=== PATIENT | female | born 1990 | race Caucasian/White ===

== ENCOUNTER 2022-06-07 08:46 | Inpatient (IN) | payer BC ==
[2022-06-07] MEDS ORDERED: Ibuprofen 800 MG TAB PO PRN (09:06)
[2022-06-07] MEDS ORDERED: hydrALAZINE 20 MG/ML VIAL SLOW IVP PRN ×2 (09:06→16:53)
[2022-06-07] MEDS ORDERED: HYDROcodone/Acetaminophen 5/325 mg Tablet PO PRN ×4 (09:06→16:53)
[2022-06-07] MEDS ORDERED: Lidocaine 1% (PF) 30 ML VIAL SC PRN (09:06)
[2022-06-07] MEDS ORDERED: Ondansetron PF 4 MG/2 ML Vial IVP PRN ×3 (09:06→16:53)
[2022-06-07] MEDS ORDERED: Butorphanol Tartrate 1 MG/ML VIAL SLOW IVP PRN (09:06)
[2022-06-07] MEDS ORDERED: Promethazine HCl 25 MG/ML VIAL IM PRN ×2 (09:06→14:05)
[2022-06-07] MEDS ORDERED: Lactated Ringer's 1,000 ML IV SCH (09:15)
[2022-06-07] MEDS ORDERED: NS w/ Oxytocin 30 units 500 ML IV SCH ×3 (09:15→16:53)
[2022-06-07 09:50] VITALS: BMI 38.6
[2022-06-07 10:22] LABS: Hemoglobin 10.3 g/dL (12.0-15.5); Mean Corpuscular HGB CONC 33.2 g/dL (32.0-36.0); Mean Corpuscular Hemoglobin 28.8 pg (27.0-33.0); Mean Corpuscular Volume 86.6 fl (81.6-98.3); Mean Platelet Volume 10.1 fl (7.4-10.4); Platelet Count 239 10x3/uL (150-450); RBC Distribution Width 12.9 % (11.5-14.5); Red Blood Cell (RBC) Count 3.58 10x6/uL (3.90-5.03)
[2022-06-07 11:09] LABS: Hep B Surf Ag Non-Reactive S/CO (NonReactive); Syphilis Antibody Nonreactive (Nonreactive); Syphilis Antibody Index 0.02 S/CO (<1.00 Non-Reactive)
[2022-06-07 11:24] LABS: HBSAg Index 0.19 S/CO (0-0.99)
[2022-06-07] MEDS ORDERED: Fentanyl 2 mcg/Bup 0.1% Cadd 100 ML ONE (11:50)
[2022-06-07] MEDS ORDERED: Fentanyl 100 MCG/2 ML VIAL ONE (12:06)
[2022-06-07] MEDS ORDERED: Naloxone HCl 0.4 mg/ml Vial IVP PRN ×2 (14:05)
[2022-06-07] MEDS ORDERED: Moisturizing Cream (Eucerin) 113 GM JAR TOP PRN (14:05)
[2022-06-07] MEDS ORDERED: Lactated Ringer's 500 ML IV PRN (14:05)
[2022-06-07] MEDS ORDERED: Acetaminophen 325 MG TAB PO PRN (14:05)
[2022-06-07] MEDS ORDERED: diphenhydrAMINE 50 MG/ML VIAL IVP PRN (14:05)
[2022-06-07] MEDS ORDERED: ePHEDrine Sulfate 50 MG/10 ML VIAL SLOW IVP PRN (14:05)
[2022-06-07] MEDS ORDERED: Fentanyl 2 mcg/Bupivacaine 0.1% Cassette 100 ML EPIDURAL SCH (14:15)
[2022-06-07] MEDS ORDERED: Communication Order-Pharmacy FS SCH (14:15)
[2022-06-07] MEDS ORDERED: diphenhydrAMINE 25 MG CAP PO PRN (16:53)
[2022-06-07] MEDS ORDERED: Preparation H Ointment 28 GM TUBE PR PRN (16:53)
[2022-06-07] MEDS ORDERED: Lanolin Ointment 7 GM TUBE TOP PRN (16:53)
[2022-06-07] MEDS ORDERED: Boostrix 0.5 ML (Tdap) VIAL IM ONE (16:53)
[2022-06-07] MEDS ORDERED: Benzocaine-Menthol 82.5 ML CAN TOP PRN (16:53)
[2022-06-07] MEDS ORDERED: Milk Of Magnesia 30 ML UDCUP PO PRN (16:53)
[2022-06-07] MEDS ORDERED: Bisacodyl 10 MG SUPP PR PRN (16:53)
[2022-06-07] MEDS: Ferrous Sulfate 325 MG TAB PO SCH (18:26)
[2022-06-07] MEDS: Ibuprofen 800 MG TAB PO SCH (21:35)
[2022-06-07] MEDS: Docusate 100 MG CAP PO SCH (21:35)
[2022-06-08] MEDS: Ibuprofen 800 MG TAB PO SCH ×2 (05:38→08:33)
[2022-06-08] MEDS: Ferrous Sulfate 325 MG TAB PO SCH ×2 (08:17→15:16)
[2022-06-08] MEDS ORDERED: Prenatal Vitamin 1 TAB PO SCH (09:00)
[2022-06-08] MEDS: Docusate 100 MG CAP PO SCH (09:15)
[2022-06-08 11:09] VITALS: TEMP 97.6
[2022-06-08 17:02] VITALS: BP 126/62
== END 2022-06-08 18:49 | disposition home or self-care (01) | DRG 807 ==
LOC: CSHLD 08:46 → CSHPP 18:19
PROVIDERS: ADMIT Obstetrics & Gynecology; ATTEND Obstetrics & Gynecology
PROC: 0HQ9XZZ Repair Perineum Skin, External Approach (ICD-10-PCS; principal; 2022-06-07)
PROC: 10E0XZZ Delivery of Products of Conception, External Approach (ICD-10-PCS; 2022-06-07)
DX: O48.1 Prolonged pregnancy (principal); Z37.0 Single live birth; O70.0 First degree perineal laceration during delivery; Z3A.40 40 weeks gestation of pregnancy
CPT/HCPCS: 36415; 51702; 85027; 86780; 86850; 86900; 86901; 87340; J2001; J2590; J7120

== ENCOUNTER 2023-08-05 14:51 | Day surgery (SDC) | payer BC ==
[2023-08-05 15:23] VITALS: BMI 37.8
[2023-08-05] MEDS ORDERED: hydrALAZINE 20 MG/ML VIAL SLOW IVP PRN (15:49)
== END 2023-08-05 16:30 | disposition home or self-care (01) ==
LOC: CSHLD/OP 14:51
PROVIDERS: ATTEND Obstetrics & Gynecology
DX: O47.1 False labor at or after 37 completed weeks of gestation (principal); Z91.030 Bee allergy status; Z79.899 Other long term (current) drug therapy; Z3A.37 37 weeks gestation of pregnancy
CPT/HCPCS: 99283

== ENCOUNTER 2023-08-13 05:48 | Inpatient (IN) | payer BC ==
[2023-08-13] MEDS ORDERED: Oxytocin 30 units/NS 500 ML 500 ML ONE (06:26)
[2023-08-13] MEDS ORDERED: Oxytocin 10 UNITS/ML VIAL ONE (06:26)
[2023-08-13] MEDS ORDERED: fentaNYL 50 mcg/mL 1 mL Vial ONE (06:43)
[2023-08-13] MEDS ORDERED: Lidocaine 1% (PF) 30 ML VIAL ONE (06:54)
[2023-08-13] MEDS ORDERED: Ondansetron PF 4 MG/2 ML Vial IVP PRN ×3 (07:28→10:38)
[2023-08-13] MEDS ORDERED: Ibuprofen 800 MG TAB PO PRN (07:28)
[2023-08-13] MEDS ORDERED: Lidocaine 1% (PF) 30 ML VIAL SC PRN (07:28)
[2023-08-13] MEDS ORDERED: fentaNYL 50 mcg/mL 1 mL Vial SLOW IVP PRN (07:28)
[2023-08-13] MEDS ORDERED: Promethazine HCl 25 MG/ML VIAL IM PRN ×2 (07:28→08:16)
[2023-08-13] MEDS ORDERED: HYDROcodone/Acetaminophen 5/325 mg Tablet PO PRN (07:28)
[2023-08-13] MEDS ORDERED: hydrALAZINE 20 MG/ML VIAL SLOW IVP PRN ×3 (07:28→10:38)
[2023-08-13] MEDS ORDERED: Oxytocin 30 units/NS 500 ML 500 ML IV SCH (07:30)
[2023-08-13] MEDS ORDERED: Lactated Ringer's 1,000 ML IV SCH (07:30)
[2023-08-13] MEDS ORDERED: Preparation H Ointment 28 GM TUBE PR PRN ×2 (08:16→10:38)
[2023-08-13] MEDS ORDERED: Milk Of Magnesia 30 ML UDCUP PO PRN ×2 (08:16→10:38)
[2023-08-13] MEDS ORDERED: Benzocaine-Menthol 82.5 ML CAN TOP PRN ×2 (08:16→10:38)
[2023-08-13] MEDS ORDERED: Lanolin Ointment 7 GM TUBE TOP PRN ×2 (08:16→10:38)
[2023-08-13] MEDS ORDERED: Bisacodyl 10 MG SUPP PR PRN ×2 (08:16→10:38)
[2023-08-13] MEDS ORDERED: diphenhydrAMINE 25 MG CAP PO PRN ×2 (08:16→10:38)
[2023-08-13] MEDS ORDERED: Misoprostol 200 MCG TAB VAG PRN ×2 (08:16→10:38)
[2023-08-13 08:30] VITALS: BMI 37.8
[2023-08-13 08:41] LABS: HBSAg Index 0.15 S/CO (0-0.99); Hematocrit 35.2 % (34.9-44.5); Hemoglobin 11.6 g/dL (12.0-15.5); Hep B Surf Ag - L&D Non-Reactive S/CO (NonReactive); Mean Corpuscular Hemoglobin 29.7 pg (27.0-33.0); Mean Corpuscular Volume 90.3 fl (81.6-98.3); Mean Platelet Volume 10.6 fl (7.4-10.4); Platelet Count 288 10x3/uL (150-450); Syphilis Antibody Nonreactive (Nonreactive); Syphilis Antibody Index 0.04 S/CO (<1.00 Non-Reactive); White Blood Cell (WBC) Count 11.1 10x3/uL (3.5-10.5)
[2023-08-13] MEDS ORDERED: Ferrous Sulfate 325 MG TAB PO SCH ×3 (09:00→17:00)
[2023-08-13] MEDS ORDERED: Docusate 100 MG CAP PO SCH ×3 (09:00→21:00)
[2023-08-13] MEDS ORDERED: Prenatal Vitamin 1 TAB PO SCH ×2 (09:00→12:00)
[2023-08-13] MEDS ORDERED: Boostrix 0.5 ML (Tdap) VIAL (>/=7 yrs of age) IM ONE (10:38)
[2023-08-13] MEDS: Ibuprofen 800 MG TAB PO SCH ×3 (13:41→20:37)
[2023-08-13] MEDS ORDERED: Ibuprofen 800 MG TAB PO SCH (14:00)
[2023-08-14] MEDS: Ibuprofen 800 MG TAB PO SCH (06:42)
[2023-08-14 07:03] LABS: #Basophils 0.1 10x3/uL (0.0-0.2); #Eosinphils 0.1 10x3/uL (0.0-0.5); #Monocytes 0.8 10x3/uL (0.0-1.1); #Neutrophils 9.5 10x3/uL (1.5-8.4); %Basophils 0.4 % (0.0-2.0); %Eosinophils 0.7 % (0.0-6.0); %Lymphocytes 21.3 % (18.0-47.0); %Monocytes 6.3 % (0.0-10.0); %Neutrophils 70.9 % (40.0-75.0); Hematocrit 32.9 % (34.9-44.5); Hemoglobin 10.8 g/dL (12.0-15.5); Mean Corpuscular HGB CONC 32.8 g/dL (32.0-36.0); Mean Corpuscular Hemoglobin 29.6 pg (27.0-33.0); Mean Corpuscular Volume 90.1 fl (81.6-98.3); Mean Platelet Volume 10.2 fl (7.4-10.4); Platelet Count 250 10x3/uL (150-450); Red Blood Cell (RBC) Count 3.65 10x6/uL (3.90-5.03); White Blood Cell (WBC) Count 13.4 10x3/uL (3.5-10.5)
[2023-08-14] MEDS ORDERED: Docusate 100 MG CAP PO PRN (07:57)
[2023-08-14] MEDS ORDERED: Ibuprofen 800 MG TAB PO PRN (07:57)
[2023-08-14] MEDS ORDERED: Prenatal Vitamin 1 TAB PO SCH (09:00)
[2023-08-14 12:25] VITALS: BP 131/81; TEMP 97.8
== END 2023-08-14 12:15 | disposition home or self-care (01) | DRG 768 ==
LOC: CSHLD/OP 05:48 → CSHLD 06:52 → CSHPP 11:23
PROVIDERS: ADMIT Obstetrics & Gynecology; ATTEND Obstetrics & Gynecology
PROC: 10E0XZZ Delivery of Products of Conception, External Approach (ICD-10-PCS; principal; 2023-08-13)
PROC: 0UQC7ZZ Repair Cervix, Via Natural or Artificial Opening (ICD-10-PCS; 2023-08-13)
DX: O69.81X0 Labor and delivery complicated by cord around neck, without compression, not applicable or unspecified (principal); Z37.0 Single live birth; O45.93 Premature separation of placenta, unspecified, third trimester; O71.3 Obstetric laceration of cervix; Z3A.39 39 weeks gestation of pregnancy; Z91.030 Bee allergy status
CPT/HCPCS: 36415; 85025; 85027; 86780; 86850; 86900; 86901; 87340; 88307; 99285; J2590; J3010